=== PATIENT | female | born 1970 | race Caucasian/White ===

== ENCOUNTER 2017-07-13 09:42 | Outpatient (CLI) | payer OTHER | END 2017-07-13 09:43 | disposition home or self-care (01) | LOC: BICMRI 09:42 | PROVIDERS: ATTEND Orthopaedic Surgery | DX: M25.561 Pain in right knee (principal); M25.461 Effusion, right knee; S83.241A Other tear of medial meniscus, current injury, right knee, initial encounter; R60.9 Edema, unspecified ==

== ENCOUNTER 2018-08-16 01:50 | Outpatient (CLI) | payer OTHER ==
[2018-08-16 11:27] LABS: Anion Gap 11 mmol/L (10-20); BUN (Urea Nitrogen) 15 mg/dL (7.0-18.7); Calc. Creatinine Clearance 0 mL/min (70-130); Calcium 9.4 mg/dL (7.8-10.44); Carbon Dioxide 26 mmol/L (22-29); Chloride 106 mmol/L (98-107); Estimated GFR-MDRD 52; Glucose 108 mg/dL (70-105); Potassium 4.3 mmol/L (3.5-5.1); Sodium 139 mmol/L (136-145)
[2018-08-16 11:28] LABS: #Basophils 0.1 thou/uL (0.0-0.2); #Eosinphils 0.2 thou/uL (0.0-0.7); #Lymphocytes 2.3 thou/uL (1.20-3.40); #Monocytes 0.7 thou/uL (0.11-0.59); #Neutrophils 3.7 thou/uL (1.40-6.50); %Basophils 0.7 % (0.0-1.0); %Eosinophils 2.3 % (0.0-10.0); %Lymphocytes 33.4 % (21.0-51.0); %Monocytes 9.8 % (0.0-10.0); %Neutrophils 53.8 % (42.0-75.0); Hemoglobin 12.5 g/dL (12.0-16.0); Mean Corpuscular Hemoglobin 29.9 pg (27.0-31.0); Mean Corpuscular Volume 90.5 fL (78.0-98.0); Mean Platelet Volume 7.5 fL (7.4-10.4); Platelet Count 297 thou/uL (130-400); Red Blood Cell (RBC) Count 4.19 mill/uL (4.20-5.40); White Blood Cell (WBC) Count 6.9 thou/uL (4.8-10.8)
== END 2018-08-16 01:51 | disposition home or self-care (01) ==
LOC: LABBT 01:50
PROVIDERS: ATTEND Orthopaedic Surgery
DX: Z01.818 Encounter for other preprocedural examination (principal); S83.511A Sprain of anterior cruciate ligament of right knee, initial encounter
CPT/HCPCS: 80048; 85025; 93005; 93010

== ENCOUNTER 2018-08-19 05:50 | Observation (INO) | payer OTHER ==
[2018-08-19] MEDS ORDERED: Fentanyl 100 MCG/2 ML VIAL ONE (06:35)
[2018-08-19] MEDS ORDERED: Midazolam HCl 2 mg/2 ml Vial ONE (06:35)
[2018-08-19] MEDS ORDERED: Ropivacaine 0.2% 550 ML 550 ML NERVE BLCK SCH (07:01)
[2018-08-19] MEDS ORDERED: Ondansetron PF 4 MG/2 ML Vial IVP PRN (07:01)
[2018-08-19] MEDS ORDERED: Promethazine HCl 25 MG/ML VIAL IM PRN (07:01)
[2018-08-19] MEDS ORDERED: Zolpidem Tartrate 5 MG TAB PO PRN (07:01)
[2018-08-19] MEDS ORDERED: traMADol HCl 50 MG TAB PO PRN (07:01)
[2018-08-19] MEDS ORDERED: HYDROcodone/Acetaminophen 7.5/325 mg Tablet PO PRN (07:02)
[2018-08-19] MEDS ORDERED: Fentanyl 100 MCG/2 ML VIAL SLOW IVP PRN (07:03)
[2018-08-19] MEDS ORDERED: Acetaminophen 500 MG TAB PO PRN (08:59)
[2018-08-19] MEDS ORDERED: Milk Of Magnesia 30 ML UDCUP PO PRN (08:59)
[2018-08-19] MEDS ORDERED: Methocarbamol 500 MG TAB PO PRN (08:59)
[2018-08-19] MEDS ORDERED: diphenhydrAMINE 50 MG CAP PO PRN (08:59)
[2018-08-19] MEDS ORDERED: Bisacodyl 10 MG SUPP PR PRN (08:59)
[2018-08-19] MEDS ORDERED: Morphine 2 MG/ML SYRINGE SLOW IVP PRN (08:59)
[2018-08-19] MEDS ORDERED: Morphine 4 MG/ML VIAL SLOW IVP PRN (08:59)
[2018-08-19] MEDS ORDERED: Famotidine 20 MG TAB PO SCH (09:00)
[2018-08-19] MEDS: Ketorolac Tromethamine 30 MG/ML VIAL IVP PRN (10:50)
--- NOTE | 2018-08-19 11:51 | OP ---
DATE OF PROCEDURE: 08/19/2018 PREOPERATIVE DIAGNOSES: Right knee anterior cruciate ligament tear, medial and lateral meniscus tears. POSTOPERATIVE DIAGNOSES: Right knee anterior cruciate ligament tear, medial and lateral meniscus tears. PROCEDURES PERFORMED: 1. Right knee exam under anesthesia. 2. Right knee arthroscopy with arthroscopically assisted anterior cruciate ligament reconstruction using an allograft Achilles tendon. 3. Partial medial and lateral meniscectomy. ASSISTANT DIRECTOR OF NURSING: Gil Jackson PA-C BLOOD LOSS: Minimal. COMPLICATIONS: None. ANESTHESIA: The patient had a general anesthetic as well as a preoperative block. IMPLANTS: To the right knee, we used a 7 x 25 metal interference screw on the femur. We used a 9 x 23 Bio[employer]posite interference screw in the tibial canal and a bicortical screw with a spiked washer as backup fixation on the tibia. There were no complications and she went to recovery room in stable condition. INDICATIONS: This 47-year-old female comes in complaining of instability with daily activity as well as pain, swelling, and catching. She was found to have an ACL tear as well as meniscal tears and at this time, opted to have surgery. DESCRIPTION OF PROCEDURE: After all appropriate consent forms were explained and signed, she was taken to the operative room and at this time was given general anesthetic. Once the level of anesthesia was appropriate, an exam under anesthetic was performed confirming a positive Polly exam. She was stable to varus and valgus stress and had a negative posterior drawer. At this time, a tourniquet was placed on the right proximal thigh and leg was then placed in arthroscopic leg cage. The limb was then prepped and draped in standard surgical fashion. The limb was then exsanguinated and the tourniquet was taken to 300 mmHg. Inferolateral portal was established. Scope was placed into the knee joint. A needle localization technique was then used to make a medial working portal. Diagnostic arthroscopy commenced in the notch. The ACL was found to be torn. PCL was intact. The remnant of the ACL was removed with a shaver. Medial compartment was evaluated. There was some grade 2 chondromalacia on the medial femoral condyle. There was a large flap tear on the posterior horn of the medial meniscus and a biter and shaver used to remove this flap tear. Remaining meniscus was left alone. The lateral compartment showed the articular surface of the femur and the tibia to be in good condition. There was a small lateral meniscus tear at its insertion site and this was debrided with a shaver back to a stable base. The gutters were swept through, no loose bodies were noted. The patellofemoral joint was found to be in good condition. At this time, a notchplasty was performed while the allograft Achilles was made, so that the bony plug was a size 10 and it was approximately 20 mm in length. At this time, we then flexed the knee up and through the medial portal, a pin was placed up and out the anterolateral thigh. We then used a 10 mm acorn reamer to ream to a depth of 30. All loose bony cartilaginous debris was removed from the knee joint. We then dilated our femoral tunnel. We then turned our attention to the tibial tunnel. The tibial guide was set into the knee at 55 degrees. A pin was placed up into the knee joint. At this time, 10 mm reamer was used to ream our tibial tunnel. Again, all loose bony cartilaginous debris was removed from the knee joint and the tibial tunnel was then dilated as well. We then smoothed off the tunnels with a rasp and a kai. We then went dry, flexed the knee up again, placed our pin up and out the anterolateral thigh using this to pull a passing suture up into the knee joint. The passing suture was pulled down through the tibial tunnel and was then used to pull our graft into the knee. A 7 x 25 metal interference screw was then used to fixate our femoral plug. We then placed a 9 x 23 Bio[employer]posite interference screw into the tibial tunnel followed by drilling, tapping, and placing a bicortical screw with a spiked washer as backup fixation. At this time, the knee was taken through full range of motion under direct visualization and was found to have no impingement in flexion or extension. The knee was found to come into full extension. Scope was removed, knee was drained. At this time, excess graft was removed. Deep Vicryl, 2-0 Vicryl, and nylon sutures were then used to close skin as well as portals. Bulky sterile dressing was applied and the tourniquet was let down. Toes pinked up nicely. The patient was awakened, taken to recovery room in stable condition. All counts were correct at the end of the case and she did receive preoperative IV antibiotics. Job ID: [id number]
[2018-08-19] MEDS: Dextrose 5 %-0.45 % NaCl 1,000 ML IV SCH ×2 (12:15→18:26)
[2018-08-19] MEDS ORDERED: Ropivacaine 0.2% HCl/PF (40 MG/20 ML VIAL) ONE (12:36)
[2018-08-19] MEDS ORDERED: Ropivacaine 0.5% HCl/PF (150 MG/30 ML VIAL) ONE (12:36)
[2018-08-19] MEDS ORDERED: PROPOFOL 200 MG/20 ML VIAL ONE (12:56)
[2018-08-19] MEDS ORDERED: Ondansetron PF 4 MG/2 ML Vial ONE (12:56)
[2018-08-19] MEDS ORDERED: Lidocaine 1% PF 5 ML VIAL ONE (12:56)
[2018-08-19] MEDS: CEFAZOLIN 2 GM in Premix Bag 1 BAG IVPB SCH ×2 (15:34→23:37)
[2018-08-19] MEDS ORDERED: Oxybutynin 5 MG TAB PO SCH (21:00)
[2018-08-19] MEDS ORDERED: Escitalopram Oxalate 20 mg Tablet PO SCH (21:00)
[2018-08-19] MEDS: Vancomycin HCl 1.5 GM in Sodium Chloride 0.9% 250 ML 300 ML IVPB SCH (21:57)
[2018-08-19] MEDS: HYDROcodone/Acetaminophen 7.5/325 mg Tablet PO PRN (23:46)
[2018-08-20] MEDS: Dextrose 5 %-0.45 % NaCl 1,000 ML IV SCH ×2 (05:27→14:28)
[2018-08-20] MEDS: HYDROcodone/Acetaminophen 7.5/325 mg Tablet PO PRN (06:04)
[2018-08-20] MEDS ORDERED: HYDROcodone/Acetaminophen 10/325 mg Tablet PO PRN ×2 (07:16)
[2018-08-20] MEDS: traMADol HCl 50 MG TAB PO PRN ×2 (08:39→14:31)
[2018-08-20] MEDS: Ketorolac Tromethamine 30 MG/ML VIAL IVP PRN (08:40)
[2018-08-20] MEDS ORDERED: Famotidine 20 MG TAB PO SCH (09:00)
[2018-08-20] MEDS: Vancomycin HCl 1.5 GM in Sodium Chloride 0.9% 250 ML 300 ML IVPB SCH (13:09)
[2018-08-20 16:42] VITALS: BP 116/77; TEMP 97.9
--- NOTE | 2018-08-22 08:55 | DIS ---
DATE OF ADMISSION: 08/19/2018 DATE OF DISCHARGE: 08/20/2018 ADMISSION DIAGNOSIS: Right knee anterior cruciate ligament tear. PROCEDURE PERFORMED: Right knee anterior cruciate ligament reconstruction with both medial and lateral partial meniscectomies. There were no complications. No consultations. BRIEF HISTORY AND HOSPITAL STAY: This 47-year-old female was brought in on date of surgery, 08/19/2018, underwent the aforementioned procedure. Postoperatively, she was admitted overnight for perioperative IV antibiotics and pain control. Following day, she underwent physical therapy, was subsequently discharged home. She will follow up with me in 7 to 10 days. She is fluent in how to use her ice machine as well as her knee brace. She will be touchdown weightbearing until I see her in the clinic and will use her crutches for this. She started dressing changes in 48 hours and she was given 4x4s and 6-inch [place] wraps to do dressing changes. She will call, if there are any problems or questions. Job ID: [id number]
== END 2018-08-20 18:05 | disposition home or self-care (01) ==
LOC: SDC 05:50 → SURG A 08:59
PROVIDERS: ADMIT Orthopaedic Surgery; ATTEND Orthopaedic Surgery
PROC: 0MRN4JZ Replacement of Right Knee Bursa and Ligament with Synthetic Substitute, Percutaneous Endoscopic Approach (ICD-10-PCS; principal; 2018-08-20)
PROC: 0SBC4ZZ Excision of Right Knee Joint, Percutaneous Endoscopic Approach (ICD-10-PCS; 2018-08-20)
PROC: 3E0T3BZ Introduction of Anesthetic Agent into Peripheral Nerves and Plexi, Percutaneous Approach (ICD-10-PCS; 2018-08-20)
DX: S83.511A Sprain of anterior cruciate ligament of right knee, initial encounter (principal); S83.281A Other tear of lateral meniscus, current injury, right knee, initial encounter; S83.241A Other tear of medial meniscus, current injury, right knee, initial encounter; M94.261 Chondromalacia, right knee; G89.18 Other acute postprocedural pain; Z79.899 Other long term (current) drug therapy; X58.XXXA Exposure to other specified factors, initial encounter
CPT/HCPCS: 96361; 96365; 96366; 96367; 96375; 96376; A4306; C1713; G0378; J0690; J1885; J2001; J2250; J2405; J2704; J2795; J3010; J3370; J7050

== ENCOUNTER 2019-05-12 08:03 | Outpatient (CLI) | payer OTHER ==
--- NOTE | 2019-05-12 09:22 | RAD ---
4 views left knee: 05/12/2019 COMPARISON: None HISTORY: Pain FINDINGS: No fracture or dislocation. No radiopaque foreign body or subcutaneous gas. No knee joint e ffusion. IMPRESSION: No acute findings.
--- NOTE | 2019-05-12 13:25 | MRI ---
MRI LEFT KNEE WITHOUT CONTRAST: Date: 05/12/2019 HISTORY: Z01.89 encounter for other specified special exams. Anterior and medial knee pain. Fall. COMPARISON: Knee radiograph same date. MRI left knee from 2018. FINDINGS: Medial Meniscus: Undersurface flap tear medial meniscal body and posterior horn with tear extending to the root attachment. No significant gutter extrusion. Lateral Meniscus: Intact. Posterior cruciate ligament is intact. No anterior cruciate ligament is present. MCL and LCL are inta ct. No dysplasia of the femoral notch. Extensor Mechanism: Quadriceps tendon, patella, and patellar tendon are intact. There is normal tibi al tuberosity and trochlear groove distance. There is mild lateral subluxation of patella with elonga tion of the lateral trochlea relative to the medial trochlea suggesting component of mild tracking an d trochlear dysplasia. The lateral trochlea is elevated relative to the medial trochlea. Cartilage: Patellofemoral compartment: A few full thickness cartilage fissures of the patellar apex with subcor tical reactive marrow change. Mild fraying of the medial trochlea with 50-75% chondral fissures. Medial compartment: No full thickness defect. Lateral compartment: No full thickness defect. Minimal fraying. Soft Tissues: There is a teardrop-shaped T2 hyperintense focus along the medial gastrocnemius myofas cial junction, may be sequelae of old hemorrhage from myofascial injury, less likely a varix, measure s up to 4.5 cm in length. Small popliteal cyst. IMPRESSION: 1. Absent anterior cruciate ligament, likely resorbed from prior tear. No trochlear notch dysplasia to suggest congenital absence. 2. Undersurface FLAP tear body and posterior horn of medial meniscus extending into the root attachm ent without significant gutter extrusion or high grade chondromalacia. 3. 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 4. Small popliteal cyst without evidence of dehiscence. POS: CET
--- NOTE | 2019-05-30 13:14 | MMO ---
Bilateral MAMMO Bilat Screen [facility]. CLINICAL HISTORY: Patient is 48 years old and is seen for screening. The patient has no family history of breast cancer. The patient has no personal history of cancer. The patient has a history of bilateral Implants in 2017. VIEWS: The views performed were: bilateral craniocaudal with tomosynthesis and bilateral mediolateral oblique with tomosynthesis. FILMS COMPARED: The present examination has been compared to prior imaging studies performed at [facility] on 05/28/2011 and 06/13/2012, at [facility] on 08/04/2017, and at [facility] on 11/14/2015. This study has been interpreted with the assistance of computer-aided detection. MAMMOGRAM FINDINGS: The breasts are heterogeneously dense, which could obscure a lesion on mammography. Normal implants are present. There are no suspicious masses, suspicious calcifications, or new areas of architectural distortion. IMPRESSION: THERE IS NO MAMMOGRAPHIC EVIDENCE OF MALIGNANCY. A ROUTINE FOLLOW-UP MAMMOGRAM IN 1 YEAR IS RECOMMENDED. THE RESULTS OF THIS EXAM WERE SENT TO THE PATIENT. ACR BI-RADS Category 2 - Benign finding MAMMOGRAPHY NOTE: 1. A negative mammogram report should not delay a biopsy if a dominant of clinically suspicious mass is present. 2. Approximately 10% to 15% of breast cancers are not detected by mammography. 3. Adenosis and dense breasts may obscure an underlying neoplasm. Reported by: AMIRAH ESCALERA MD Electonically Signed: [id number]
== END 2019-05-12 08:04 | disposition home or self-care (01) ==
LOC: BICMAMMO 08:03
DX: Z12.31 Encounter for screening mammogram for malignant neoplasm of breast (principal); Z01.89 Encounter for other specified special examinations; M25.561 Pain in right knee; S83.241A Other tear of medial meniscus, current injury, right knee, initial encounter; S83.011A Lateral subluxation of right patella, initial encounter; M71.21 Synovial cyst of popliteal space [Baker], right knee; Z98.82 Breast implant status; Q74.1 Congenital malformation of knee
CPT/HCPCS: 77063; 77067

== ENCOUNTER 2019-09-29 04:50 | Outpatient (CLI) | payer OTHER ==
[2019-09-29 11:20] LABS: #Eosinphils 0.1 thou/uL (0.0-0.7); #Monocytes 0.5 thou/uL (0.11-0.59); #Neutrophils 4.3 thou/uL (1.40-6.50); %Basophils 0.4 % (0.0-1.0); %Eosinophils 1.8 % (0.0-10.0); %Lymphocytes 37.4 % (21.0-51.0); %Monocytes 6.8 % (0.0-10.0); %Neutrophils 53.7 % (42.0-75.0); Hemoglobin 12.3 g/dL (12.0-16.0); Mean Corpuscular HGB CONC 33.5 g/dL (32.0-36.0); Mean Corpuscular Hemoglobin 30.8 pg (27.0-31.0); Mean Platelet Volume 7.8 fL (7.4-10.4); Platelet Count 295 thou/uL (130-400); RBC Distribution Width 12.6 % (11.5-14.5); Red Blood Cell (RBC) Count 3.99 mill/uL (4.20-5.40); White Blood Cell (WBC) Count 7.9 thou/uL (4.8-10.8)
[2019-09-29 12:11] LABS: Anion Gap 14 mmol/L (10-20); BUN (Urea Nitrogen) 13 mg/dL (7.0-18.7); Calc. Creatinine Clearance 0 mL/min (70-130); Calcium 8.9 mg/dL (7.8-10.44); Carbon Dioxide 23 mmol/L (22-29); Chloride 103 mmol/L (98-107); Estimated GFR-MDRD 50; Glucose 120 mg/dL (70-105); Potassium 3.8 mmol/L (3.5-5.1); Sodium 136 mmol/L (136-145)
[2019-09-30 12:36] LABS: SARS-CoV-2 MS2 Positive; SARS-CoV-2 N Gene Negative; SARS-CoV-2 S Gene Negative; SARS-CoV-2 orf1ab Negative
--- NOTE | 2019-09-30 19:43 | EKG ---
Test Reason : Blood Pressure : / mmHG Vent. Rate : 066 BPM Atrial Rate : 066 BPM P-R Int : 164 ms QRS Dur : 078 ms QT Int : 432 ms P-R-T Axes : 051 023 023 degrees QTc Int : 452 ms Normal sinus rhythm Low voltage QRS Nonspecific T wave abnormality Abnormal ECG When compared with ECG of 16-AUG-2018 10:47, No significant change was found Confirmed by MAITE MCCLAIN, . SHilary ([id number]) on 09/30/2019 7:43:12 PM Referred By: IERO Confirmed By:DR. Ana Maria ARORA MD
== END 2019-09-29 04:51 | disposition home or self-care (01) ==
LOC: LABBT 04:50
PROVIDERS: ATTEND Orthopaedic Surgery
DX: Z01.818 Encounter for other preprocedural examination (principal); Z11.59 Encounter for screening for other viral diseases; S83.512A Sprain of anterior cruciate ligament of left knee, initial encounter
CPT/HCPCS: 80048; 85025; 87635; 93005; 93010; U0003

== ENCOUNTER 2019-10-04 05:42 | Observation (INO) | payer OTHER ==
[2019-09-27 12:32] VITALS: BMI 36.0
[2019-10-04] MEDS ORDERED: Fentanyl 100 MCG/2 ML VIAL ONE ×5 (06:46→10:30)
[2019-10-04] MEDS ORDERED: Midazolam HCl 2 mg/2 ml Vial ONE (06:46)
[2019-10-04] MEDS ORDERED: traMADol HCl 50 MG TAB PO PRN (07:01)
[2019-10-04] MEDS ORDERED: Fentanyl 100 MCG/2 ML VIAL IV PRN (07:01)
[2019-10-04] MEDS ORDERED: Promethazine HCl 25 MG/ML VIAL IM PRN (07:01)
[2019-10-04] MEDS ORDERED: Ondansetron PF 4 MG/2 ML Vial IVP PRN (07:01)
[2019-10-04] MEDS ORDERED: Ropivacaine 0.2% 550 ML 550 ML NERVE BLCK SCH (07:01)
[2019-10-04] MEDS ORDERED: HYDROcodone/Acetaminophen 10/325 mg Tablet PO PRN (07:01)
[2019-10-04] MEDS ORDERED: Zolpidem Tartrate 5 MG TAB PO PRN (07:01)
[2019-10-04] MEDS ORDERED: Vancomycin 1.5 GRAM/300 ML BAG ONE (07:20)
[2019-10-04] MEDS ORDERED: diphenhydrAMINE 50 MG CAP PO PRN (07:36)
[2019-10-04] MEDS ORDERED: Milk Of Magnesia 30 ML UDCUP PO PRN (07:36)
[2019-10-04] MEDS ORDERED: Morphine 4 MG/ML VIAL SLOW IVP PRN (07:36)
[2019-10-04] MEDS ORDERED: HYDROcodone/Acetaminophen 7.5/325 mg Tablet PO PRN ×2 (07:36)
[2019-10-04] MEDS ORDERED: Acetaminophen 500 MG TAB PO PRN (07:36)
[2019-10-04] MEDS ORDERED: Morphine 2 MG/ML VIAL SLOW IVP PRN (07:36)
[2019-10-04] MEDS ORDERED: Bisacodyl 10 MG SUPP PR PRN (07:36)
--- NOTE | 2019-10-04 09:33 | OP ---
DATE OF PROCEDURE: 10/04/2019 PREOPERATIVE DIAGNOSES: Left knee anterior cruciate ligament tear and medial meniscal tear. POSTOPERATIVE DIAGNOSES: Left knee anterior cruciate ligament tear and medial meniscal tear. PROCEDURES PERFORMED: 1. Left knee arthroscopy with arthroscopically-assisted anterior cruciate ligament reconstruction using an allograft, Achilles tendon. 2. Partial medial meniscectomy. SOUNDSCRIBER MECHANIC: Gil Jackson PA-C ESTIMATED BLOOD LOSS: Minimal. COMPLICATIONS: None. ANESTHESIA: The patient did have a general anesthetic as well as preoperative block. IMPLANTS: We used a 7 x 25 metal interference screw on the femur. We used a 9 x 20 BioComposite FastThread interference screw in the tibia. We backed that up with a bicortical screw with a soft tissue washer. DISPOSITION: She did go to recovery room in stable condition. INDICATIONS: This is a 48-year-old female, who has had problems in her left knee for years. She did have a right knee ACL reconstruction done within the last year and at this time is presenting for ACL reconstruction done on this leg. DESCRIPTION OF PROCEDURE: After all appropriate consent forms were explained and signed, she was taken back to the operating room and at this time was given general anesthetic. Once the level of anesthesia was appropriate, exam under anesthesia confirmed a positive Polly's exam. She was stable to varus and valgus stress. Tourniquet was placed on left thigh. Leg was placed in arthroscopic leg cage. The limb was then prepped and draped in standard surgical fashion. Limb was exsanguinated and tourniquet was taken to 300 mmHg. Inferolateral portal was established. And scope was placed into the knee joint. A needle localization technique was then used to make a medial working portal. Diagnostic arthroscopy commenced in the notch. The ACL was found to be gone. There was an empty wall sign and really no significant remnant. There was a piece of meniscal tissue floating in the notch. This was removed with the shaver. There was another piece of the meniscus attached still to the little tiny bridge on the anterior horn. This was removed with a shaver. We then evaluated our medial compartment. The femur and tibia looked to be in good condition. We could tell where the medial meniscus had, had a large bucket-handle tear, which had finally ripped off. There was no unstable flaps going superior and inferior, just a ragged edge throughout. This was just gently debrided with a shaver back to a stable base. Lateral compartment was found to be intact except for some fissuring of the lateral tibial plateau. No treatment was indicated. Gutters were swept through. There was a piece of medial meniscal tissue in the lateral gutter. This was removed with a suction shaver device. Patellofemoral joint was found to be in good condition. At this time, notchplasty was performed in standard fashion. We then flexed the knee up and through the medial portal, we used an [id number] guide to place a pin up and out the anterolateral thigh. A 10-mm reamer was used to ream our tunnel to a depth of 30. We then removed all loose bony and cartilaginous debris from the knee joint. We then dilated with a 10 and a 10.5 dilator. At this time, we then went ahead and inserted our tibial guide at 60 degrees once we made an incision on our leg. A pin was placed up into the knee joint. We then took all soft tissue off from the pin and we then used our 10 mm reamer to ream our tibial tunnel. All loose bony and cartilaginous debris were again removed from the knee joint. The red rasp and kai were used to smooth off our edges and to open up our tibial tunnel. Once this was done, we then used our tendon 10.5 dilator on the tibial tunnel. We then went dry. We flexed the knee up again, placed a pin up and out the anterolateral thigh using this to pull a passing suture into the knee joint. This was pulled down the tibial tunnel. This was used then to pull our graft into place. A 7 x 25 metal interference screw was used to fixate our femoral side. A 9 x 20 BioComposite interference screw was then placed up into the tibial tunnel and this was then backed up with a bicortical screw with a soft tissue washer. The knee was then taken through full range of motion, found to have 5 degrees of hyperextension and under direct visualization, the graft was found to have no impingement through flexion and extension in the notch. At this time, excess graft was removed. We then thoroughly irrigated and dried our wounds. We then used deep Vicryl, superficial Vicryl, and juan jose on the skin. A bulky sterile dressing was applied. Tourniquet was let down. Toes pinked up nicely. The patient was awakened, taken to the recovery room in stable condition. All counts were correct at the end of the case and she did receive preoperative IV antibiotics. Job ID: [id number] MTDD
[2019-10-04] MEDS ORDERED: PROPOFOL 200 MG/20 ML VIAL ONE (10:56)
[2019-10-04] MEDS ORDERED: Lidocaine 1% PF 5 ML VIAL ONE (10:56)
[2019-10-04] MEDS ORDERED: Bupivacaine HCl 0.5%/Epinephrine 1:200,000/PF 30 ml Vial ONE (10:56)
[2019-10-04] MEDS ORDERED: Ondansetron PF 4 MG/2 ML Vial ONE (10:56)
[2019-10-04] MEDS ORDERED: Dexamethasone 20 MG/5 ML VIAL ONE (10:56)
[2019-10-04] MEDS ORDERED: Ketorolac Tromethamine 30 MG/ML VIAL IVP SCH (12:00)
[2019-10-04] MEDS: Oxybutynin 5 MG TAB PO SCH ×2 (12:03→20:13)
[2019-10-04] MEDS ORDERED: CEFAZOLIN 2 GM in Premix Bag 1 BAG IVPB SCH (14:00)
[2019-10-04] MEDS: HYDROcodone/Acetaminophen 10/325 mg Tablet PO PRN ×2 (14:11→18:38)
[2019-10-04] MEDS: Dextrose 5 %-0.45 % NaCl 1,000 ML IV SCH ×2 (14:36→17:04)
[2019-10-04] MEDS: Methocarbamol 500 MG TAB PO PRN (14:36)
[2019-10-04] MEDS: CEFAZOLIN 2 GM in Premix Bag 1 BAG IVPB SCH ×2 (16:17→23:07)
[2019-10-04] MEDS: Vancomycin 1 GM in Premix Bag 1 BAG IVPB SCH (20:13)
[2019-10-04] MEDS ORDERED: Escitalopram Oxalate 20 mg Tablet PO SCH (21:00)
[2019-10-05] MEDS: HYDROcodone/Acetaminophen 10/325 mg Tablet PO PRN ×3 (01:09→11:28)
[2019-10-05] MEDS: traMADol HCl 50 MG TAB PO PRN ×2 (03:37→14:50)
[2019-10-05] MEDS: Dextrose 5 %-0.45 % NaCl 1,000 ML IV SCH ×2 (03:41→14:30)
[2019-10-05] MEDS: Oxybutynin 5 MG TAB PO SCH (08:54)
[2019-10-05] MEDS: Vancomycin 1 GM in Premix Bag 1 BAG IVPB SCH (08:54)
[2019-10-05] MEDS ORDERED: diphenhydrAMINE 50 MG/ML VIAL IVP SCH (09:30)
[2019-10-05] MEDS: Methocarbamol 500 MG TAB PO PRN (12:31)
[2019-10-05 16:32] VITALS: BP 128/81; TEMP 98.1
== END 2019-10-05 16:34 | disposition home or self-care (01) ==
LOC: SDC 05:42 → SURG B 07:39
PROVIDERS: ADMIT Orthopaedic Surgery; ATTEND Orthopaedic Surgery
PROC: 0SBD4ZZ Excision of Left Knee Joint, Percutaneous Endoscopic Approach (ICD-10-PCS; principal; 2019-10-04)
PROC: 0MRP47Z Replacement of Left Knee Bursa and Ligament with Autologous Tissue Substitute, Percutaneous Endoscopic Approach (ICD-10-PCS; 2019-10-04)
PROC: 3E0T3BZ Introduction of Anesthetic Agent into Peripheral Nerves and Plexi, Percutaneous Approach (ICD-10-PCS; 2019-10-04)
DX: S83.512A Sprain of anterior cruciate ligament of left knee, initial encounter (principal); S83.212A Bucket-handle tear of medial meniscus, current injury, left knee, initial encounter; G89.18 Other acute postprocedural pain; Z79.1 Long term (current) use of non-steroidal anti-inflammatories (NSAID); Z79.899 Other long term (current) drug therapy; Z88.6 Allergy status to analgesic agent; Z98.890 Other specified postprocedural states
CPT/HCPCS: 96365; 96366; 96375; 96376; A4306; C1713; G0378; J0670; J0690; J1100; J2250; J2405; J2704; J2795; J3010; J3370; Q0163

== ENCOUNTER 2020-09-11 10:34 | Outpatient (CLI) | payer OTHER | END 2020-09-11 10:35 | disposition home or self-care (01) | LOC: BICMAMMO 10:34 | DX: Z12.31 Encounter for screening mammogram for malignant neoplasm of breast (principal); Z98.82 Breast implant status | CPT/HCPCS: 77063; 77067 ==

== ENCOUNTER 2020-09-18 12:45 | Outpatient (CLI) | payer OTHER | END 2020-09-18 12:46 | disposition home or self-care (01) | LOC: BICMRI 12:45 | PROVIDERS: ATTEND Orthopaedic Surgery | DX: M23.91 Unspecified internal derangement of right knee (principal); S83.241A Other tear of medial meniscus, current injury, right knee, initial encounter; M25.861 Other specified joint disorders, right knee; Z98.890 Other specified postprocedural states ==

== ENCOUNTER 2020-10-09 07:10 | Observation (INO) | payer OTHER ==
[2020-10-09] MEDS ORDERED: Midazolam HCl 2 mg/2 ml Vial ONE (08:15)
[2020-10-09] MEDS ORDERED: Fentanyl 100 MCG/2 ML VIAL ONE ×2 (08:15→10:05)
[2020-10-09] MEDS ORDERED: Fentanyl 100 MCG/2 ML VIAL IV PRN (09:03)
[2020-10-09] MEDS ORDERED: HYDROcodone/Acetaminophen 5/325 mg Tablet PO PRN ×2 (09:15)
[2020-10-09] MEDS ORDERED: Promethazine HCl 25 MG/ML VIAL IM PRN ×2 (09:15→11:37)
[2020-10-09] MEDS ORDERED: Zolpidem Tartrate 5 MG TAB PO PRN (09:15)
[2020-10-09] MEDS ORDERED: traMADol HCl 50 MG TAB PO PRN ×2 (09:15)
[2020-10-09] MEDS ORDERED: Ondansetron PF 4 MG/2 ML Vial IVP PRN (09:15)
[2020-10-09] MEDS ORDERED: Ropivacaine 0.2% 550 ML 550 ML NERVE BLCK SCH (09:15)
[2020-10-09] MEDS ORDERED: Vancomycin HCl 1.5 GM in Sodium Chloride 0.9% 250 ML 300 ML IVPB SCH (10:00)
[2020-10-09] MEDS ORDERED: Dexamethasone 20 MG/5 ML VIAL ONE (10:27)
[2020-10-09] MEDS ORDERED: Ondansetron PF 4 MG/2 ML Vial ONE (10:27)
[2020-10-09] MEDS ORDERED: PHENYLEPHRINE-NS 100 MCG/ML 10 ML SYRINGE ONE (10:27)
[2020-10-09] MEDS ORDERED: Ropivacaine 2% HCl/PF (20 MG/10 ML VIAL) ONE (10:27)
[2020-10-09] MEDS ORDERED: Lidocaine 1% PF 5 ML VIAL ONE (10:27)
[2020-10-09] MEDS ORDERED: diphenhydrAMINE 50 MG/ML VIAL ONE ×2 (10:27→14:06)
[2020-10-09] MEDS ORDERED: ePHEDrine Sulfate 50 MG/10 ML VIAL ONE (10:27)
[2020-10-09] MEDS ORDERED: Ketorolac Tromethamine 30 MG/ML VIAL ONE (10:27)
[2020-10-09] MEDS ORDERED: Ropivacaine 0.5% HCl/PF (150 MG/30 ML VIAL) ONE (10:27)
[2020-10-09] MEDS ORDERED: PROPOFOL 200 MG/20 ML VIAL ONE (10:27)
[2020-10-09] MEDS ORDERED: Bisacodyl 10 MG SUPP PR PRN (10:34)
[2020-10-09] MEDS ORDERED: HYDROcodone/Acetaminophen 7.5/325 mg Tablet PO PRN (10:34)
[2020-10-09] MEDS ORDERED: Milk Of Magnesia 30 ML UDCUP PO PRN (10:34)
[2020-10-09] MEDS ORDERED: Methocarbamol 500 MG TAB PO PRN (10:34)
[2020-10-09] MEDS ORDERED: Acetaminophen 500 MG TAB PO PRN (10:34)
[2020-10-09] MEDS ORDERED: diphenhydrAMINE 50 MG CAP PO PRN (10:34)
[2020-10-09] MEDS ORDERED: Morphine 2 MG/ML VIAL SLOW IVP PRN (10:34)
[2020-10-09] MEDS ORDERED: Meperidine HCl/PF 25 MG/ML VIAL SLOW IVP PRN (11:37)
[2020-10-09] MEDS ORDERED: Promethazine HCl 25 MG/ML VIAL IVPB PRN (11:37)
[2020-10-09] MEDS ORDERED: HYDROmorphone 2 MG/ML VIAL SLOW IVP PRN (11:37)
[2020-10-09] MEDS ORDERED: Meperidine HCl/PF 25 MG/ML VIAL ONE (12:15)
[2020-10-09] MEDS ORDERED: CEFAZOLIN 2 GM in Premix Bag 1 BAG IVPB SCH (16:00)
[2020-10-09 17:47] VITALS: BMI 32.4
[2020-10-09] MEDS ORDERED: Escitalopram Oxalate 20 mg Tablet PO SCH (21:00)
[2020-10-09] MEDS: Famotidine 20 MG TAB PO SCH (21:33)
[2020-10-09] MEDS: Dextrose 5 %-0.45 % NaCl 1,000 ML IV SCH (22:51)
[2020-10-10] MEDS: Dextrose 5 %-0.45 % NaCl 1,000 ML IV SCH ×2 (01:20→06:53)
[2020-10-10] MEDS ORDERED: CEFAZOLIN 2 GM in Premix Bag 1 BAG IVPB SCH (02:00)
[2020-10-10] MEDS: HYDROcodone/Acetaminophen 7.5/325 mg Tablet PO PRN ×2 (05:47→11:19)
[2020-10-10] MEDS ORDERED: Vancomycin 1.5 GRAM/300 ML BAG 1.5 GM in Premix Bag 1 BAG IVPB SCH (06:30)
[2020-10-10] MEDS ORDERED: Vancomycin HCl 1.5 GM in Sodium Chloride 0.9% 250 ML 300 ML IVPB SCH (06:45)
[2020-10-10] MEDS: Famotidine 20 MG TAB PO SCH (08:11)
[2020-10-10] MEDS ORDERED: Bupropion 150 MG XL TAB PO SCH (09:00)
[2020-10-10 12:31] VITALS: BP 115/77; TEMP 98.2
== END 2020-10-10 13:30 | disposition home or self-care (01) ==
LOC: SDC 07:10 → INTOOBSV 15:43 → SJJU 15:43
PROVIDERS: ADMIT Orthopaedic Surgery; ATTEND Orthopaedic Surgery
PROC: 0MRN47Z Replacement of Right Knee Bursa and Ligament with Autologous Tissue Substitute, Percutaneous Endoscopic Approach (ICD-10-PCS; principal; 2020-10-09)
PROC: 0SBC4ZZ Excision of Right Knee Joint, Percutaneous Endoscopic Approach (ICD-10-PCS; 2020-10-09)
PROC: 3E0T3BZ Introduction of Anesthetic Agent into Peripheral Nerves and Plexi, Percutaneous Approach (ICD-10-PCS; 2020-10-09)
PROC: 3E0T3BZ Introduction of Anesthetic Agent into Peripheral Nerves and Plexi, Percutaneous Approach (ICD-10-PCS; 2020-10-09)
DX: T84.418A Breakdown (mechanical) of other internal orthopedic devices, implants and grafts, initial encounter (principal); M23.8X1 Other internal derangements of right knee; Z79.899 Other long term (current) drug therapy; Z88.6 Allergy status to analgesic agent; Z98.890 Other specified postprocedural states
CPT/HCPCS: 96365; 96367; 96376; A4306; C1713; G0378; J0690; J1100; J1200; J1885; J2175; J2250; J2405; J2704; J2795; J3010; J3370; J7050

== ENCOUNTER 2021-09-17 10:09 | Outpatient (CLI) | payer OTHER | END 2021-09-17 10:10 | disposition home or self-care (01) | LOC: BICMAMMO 10:09 | PROVIDERS: ATTEND Physician Assistant Medical | DX: Z12.31 Encounter for screening mammogram for malignant neoplasm of breast (principal); Z98.82 Breast implant status | CPT/HCPCS: 77063; 77067 ==

== ENCOUNTER 2023-02-05 10:56 | Outpatient (CLI) | payer OTHER | END 2023-02-05 10:57 | disposition home or self-care (01) | LOC: BICRAD 10:56 | PROVIDERS: ATTEND Physician Assistant Medical | DX: S99.922A Unspecified injury of left foot, initial encounter (principal); R93.6 Abnormal findings on diagnostic imaging of limbs; M19.072 Primary osteoarthritis, left ankle and foot ==

== ENCOUNTER 2023-04-16 09:09 | Outpatient (CLI) | payer OTHER ==
[2023-04-16] MEDS ORDERED: Magnevist 469MG/ML 20 ML VIAL ONE (12:04)
== END 2023-04-16 09:10 | disposition home or self-care (01) ==
LOC: BICMRI 09:09
PROVIDERS: ATTEND Physician Assistant Medical
DX: Z12.31 Encounter for screening mammogram for malignant neoplasm of breast (principal); R22.40 Localized swelling, mass and lump, unspecified lower limb; Z98.82 Breast implant status
CPT/HCPCS: 77063; 77067; A9579

== ENCOUNTER 2023-09-10 09:46 | Outpatient (CLI) | payer OTHER | END 2023-09-10 09:47 | disposition home or self-care (01) | LOC: BICMRI 09:46 → SCSMRI 09:47 | PROVIDERS: ATTEND Physician Assistant Medical | DX: M25.551 Pain in right hip (principal); S76.011A Strain of muscle, fascia and tendon of right hip, initial encounter; S73.191A Other sprain of right hip, initial encounter; M70.61 Trochanteric bursitis, right hip ==